=== PATIENT | male | born 1965 | race Caucasian/White ===

== ENCOUNTER 2019-02-25 08:15 | Inpatient (IN) | payer MEDICAID ==
[2019-02-25] MEDS: ONDANSETRON 4 MG INJ IV (09:25)
[2019-02-25] MEDS: SOD CHLORIDE 0.9% 1,000 ML IV (09:29)
[2019-02-25 09:42] LABS: ADD MAN DIFF? NO
[2019-02-25 09:44] LABS: WHITE BLOOD COUNT 9.8 10^3/ul (4.8-10.8)
[2019-02-25 09:44] LABS: ABNORMAL IP MESSAGE 1; BASOPHILS % 0.4 % (0.0-2.0); EOSINOPHILS % 0.1 % (0.0-7.0); HEMATOCRIT 49.4 % (42.0-52.0); HEMOGLOBIN 16.9 g/dl (14.0-18.0); LYMPHOCYTES # 0.4 10^3/ul (0.8-2.9); LYMPHOCYTES % 4.4 % (15.0-51.0); MEAN CORPUSCULAR HEMOGLOBIN 29.3 pg (29.0-33.0); MEAN CORPUSCULAR HGB CONC 34.2 g/dl (32.0-37.0); MEAN CORPUSCULAR VOLUME 85.6 fl (82.0-101.0); MEAN PLATELET VOLUME 11.1 fl (7.4-10.4); MONOCYTE # 0.6 10^3/ul (0.3-0.9); MONOCYTES % 6.1 % (0.0-11.0); NEUTROPHIL # 8.7 10^3/ul (1.6-7.5); NEUTROPHILS % 88.7 % (39.0-77.0); PLATELET COUNT 218 10^3/UL (140-415); POSITIVE DIFF @See below; RED BLOOD COUNT 5.77 10^6/ul (4.70-6.10); RED CELL DISTRIBUTION WIDTH 12.6 % (11.5-14.5)
[2019-02-25 10:01] LABS: ALANINE AMINOTRANSFERASE 21 IU/L (13-69); ALBUMIN 4.1 g/dl (3.3-4.9); ALBUMIN/GLOBULIN RATIO 1.36; ALKALINE PHOSPHATASE 95 IU/L (42-121); ANION GAP 8 (5-13); ASPARTATE AMINO TRANSFERASE 19 IU/L (15-46); BILIRUBIN,INDIRECT 1.3 mg/dl (0-1.1); BILIRUBIN,TOTAL 1.3 mg/dl (0.2-1.3); BLOOD UREA NITROGEN 22 mg/dl (7-20); CALCIUM 9.4 mg/dl (8.4-10.2); CARBON DIOXIDE 31 mmol/L (21-31); CHLORIDE 101 mmol/L (97-110); CREATININE 0.85 mg/dl (0.61-1.24); Estimated GFR > 60 mL/min (>60); GLUCOSE 278 mg/dl (70-220); LIPASE 185 U/L (23-300); POTASSIUM 3.9 mmol/L (3.5-5.1); SODIUM 140 mmol/L (135-144); TOTAL PROTEIN 7.1 g/dl (6.1-8.1)
[2019-02-25 10:02] LABS: AMMONIA < 9 umol/l (9-30)
[2019-02-25 10:02] LABS: ETHANOL < 10.0 mg/dl (0-0)
[2019-02-25 10:03] LABS: INR 0.93; PROTIME 12.6 Sec (11.9-14.9)
[2019-02-25 10:04] LABS: PARTIAL THROMBOPLASTIN TIME 26.9 Sec (23.0-35.0)
[2019-02-25 10:12] LABS: TROPONIN-I < 0.012 ng/ml (0.000-0.120)
[2019-02-25] MEDS: ASPIRIN 81 MG TAB PO (10:45)
[2019-02-25] MEDS ORDERED: NACL 0.9% 3 ML SYG IV (11:00)
[2019-02-25 13:14] LABS: CHOLESTEROL 209 mg/dl (100-200)
[2019-02-25 13:14] LABS: CHOL/HDL RATIO 6.3 RATIO; HDL CHOLESTEROL 33 mg/dl (28-71); LDL CHOLESTEROL,CALCULATED 133 mg/dl; TRIGLYCERIDES 215 mg/dl (0-149)
[2019-02-25 13:30] LABS: HIV 1&2 ANTIBODY NEGATIVE (NEGATIVE)
[2019-02-25] MEDS ORDERED: GLUCOSE GEL 15 GRAM TUBE BUCCAL (13:30)
[2019-02-25] MEDS ORDERED: GLUCOSE GEL 15 GRAM TUBE PO ×2 (13:30)
[2019-02-25] MEDS ORDERED: DEXTROSE 50% 50 ML SYRINGE IV ×2 (13:30)
[2019-02-25] MEDS ORDERED: GLUCAGON 1 MG INJ IM (13:30)
[2019-02-25 13:39] LABS: ERYTHROCYTE SEDIMENTATION RATE 1 mm/Hr (0-20)
[2019-02-25 13:51] LABS: HEMOGLOBIN A1C 8.4 % (0-5.9)
[2019-02-25] MEDS: INSULIN ASPART [NOVOLOG] 3 ML PEN SC ×2 (18:00→21:15)
[2019-02-25] MEDS: FAMOTIDINE 20 MG TAB PO (20:31)
[2019-02-25] MEDS: ATORVASTATIN 40 MG TAB PO (20:31)
[2019-02-25] MEDS: HYDROCODONE/APAP (5/325) TAB PO (20:35)
[2019-02-25] MEDS: HEPARIN 5,000 UNIT/1 ML VIAL SC (20:38)
[2019-02-25 20:48] LABS: RAPID PLASMA REAGIN NONREACTIVE (NR)
[2019-02-25] MEDS: hydrALAzine 20 MG INJ IV (23:00)
[2019-02-25] MEDS: MULTIVITAMINS 10 ML, THIAMINE 100 MG, FOLIC ACID 1 MG in SOD CHLORIDE 0.9% 1,000 ML IVPB (23:53)
[2019-02-26] MEDS: ACCU-CHEK XX (02:02)
[2019-02-26 06:20] LABS: ADD MAN DIFF? NO
[2019-02-26 06:26] LABS: BASOPHILS % 0.5 % (0.0-2.0); EOSINOPHILS % 0.1 % (0.0-7.0); HEMATOCRIT 45.5 % (42.0-52.0); HEMOGLOBIN 15.9 g/dl (14.0-18.0); LYMPHOCYTES # 0.6 10^3/ul (0.8-2.9); LYMPHOCYTES % 7.7 % (15.0-51.0); MEAN CORPUSCULAR HEMOGLOBIN 29.6 pg (29.0-33.0); MEAN CORPUSCULAR HGB CONC 34.9 g/dl (32.0-37.0); MEAN CORPUSCULAR VOLUME 84.7 fl (82.0-101.0); MEAN PLATELET VOLUME 11.4 fl (7.4-10.4); MONOCYTE # 0.6 10^3/ul (0.3-0.9); MONOCYTES % 7.2 % (0.0-11.0); NEUTROPHIL # 6.8 10^3/ul (1.6-7.5); NEUTROPHILS % 84.1 % (39.0-77.0); PLATELET COUNT 202 10^3/UL (140-415); RED BLOOD COUNT 5.37 10^6/ul (4.70-6.10); RED CELL DISTRIBUTION WIDTH 12.6 % (11.5-14.5)
[2019-02-26 06:26] LABS: WHITE BLOOD COUNT 8.1 10^3/ul (4.8-10.8)
[2019-02-26 06:44] LABS: ALANINE AMINOTRANSFERASE 20 IU/L (13-69); ALBUMIN 3.6 g/dl (3.3-4.9); ALBUMIN/GLOBULIN RATIO 1.44; ALKALINE PHOSPHATASE 80 IU/L (42-121); ANION GAP 10 (5-13); ASPARTATE AMINO TRANSFERASE 21 IU/L (15-46); BILIRUBIN,INDIRECT 1.2 mg/dl (0-1.1); BILIRUBIN,TOTAL 1.2 mg/dl (0.2-1.3); BLOOD UREA NITROGEN 19 mg/dl (7-20); CALCIUM 9.3 mg/dl (8.4-10.2); CARBON DIOXIDE 28 mmol/L (21-31); CHLORIDE 105 mmol/L (97-110); CHOL/HDL RATIO 5.6 RATIO; CHOLESTEROL 181 mg/dl (100-200); CREATININE 0.73 mg/dl (0.61-1.24); Estimated GFR > 60 mL/min (>60); GLUCOSE 200 mg/dl (70-220); HDL CHOLESTEROL 32 mg/dl (28-71); LDL CHOLESTEROL,CALCULATED 120 mg/dl; MAGNESIUM 2.1 mg/dl (1.7-2.5); POTASSIUM 3.9 mmol/L (3.5-5.1); SODIUM 143 mmol/L (135-144); TOTAL PROTEIN 6.1 g/dl (6.1-8.1); TRIGLYCERIDES 145 mg/dl (0-149)
[2019-02-26 06:59] LABS: FREE THYROXINE INDEX (Calc) 3.26 ug/ml (0.65-3.89); T3 UPTAKE 39.8 % (23.5-40.5); T4 (THYROXINE) 8.2 ug/dl (5.5-11.0)
[2019-02-26] MEDS: INSULIN ASPART [NOVOLOG] 3 ML PEN SC ×5 (07:40→20:53)
[2019-02-26] MEDS: ONDANSETRON 4 MG INJ IV (07:50)
[2019-02-26] MEDS: hydrALAzine 20 MG INJ IV (07:51)
[2019-02-26] MEDS: FAMOTIDINE 20 MG TAB PO ×2 (08:18→20:16)
[2019-02-26] MEDS: ASPIRIN (EC) 81 MG TAB PO (08:18)
[2019-02-26] MEDS: HEPARIN 5,000 UNIT/1 ML VIAL SC ×2 (08:43→20:28)
[2019-02-26] MEDS: MULTIVITAMINS 10 ML, THIAMINE 100 MG, FOLIC ACID 1 MG in SOD CHLORIDE 0.9% 1,000 ML IVPB (08:47)
[2019-02-26] MEDS: LISINOPRIL 5 MG TAB PO (16:48)
[2019-02-26] MEDS: ATORVASTATIN 40 MG TAB PO (20:16)
[2019-02-26] MEDS: AMLODIPINE 5 MG TAB PO (20:17)
[2019-02-26] MEDS: INSULIN GLARGINE [LANTus] (100 UNITS/ML) SYG SC (20:52)
[2019-02-27] MEDS: ACCU-CHEK XX (01:40)
[2019-02-27] MEDS: INSULIN ASPART [NOVOLOG] 3 ML PEN SC ×7 (08:00→20:19)
[2019-02-27] MEDS: LISINOPRIL 5 MG TAB PO (08:04)
[2019-02-27] MEDS: ASPIRIN (EC) 81 MG TAB PO (08:04)
[2019-02-27] MEDS: AMLODIPINE 5 MG TAB PO ×2 (08:04→20:15)
[2019-02-27] MEDS: hydrALAzine 20 MG INJ IV ×2 (08:04→20:15)
[2019-02-27] MEDS: HEPARIN 5,000 UNIT/1 ML VIAL SC ×2 (08:12→20:16)
[2019-02-27] MEDS: FAMOTIDINE 20 MG TAB PO ×2 (09:00→20:15)
[2019-02-27] MEDS: MULTIVITAMINS 10 ML, THIAMINE 100 MG, FOLIC ACID 1 MG in SOD CHLORIDE 0.9% 1,000 ML IVPB (09:00)
[2019-02-27] MEDS: ONDANSETRON 4 MG INJ IV (13:58)
[2019-02-27] MEDS: ATORVASTATIN 40 MG TAB PO (20:14)
[2019-02-27] MEDS: HYDROCODONE/APAP (5/325) TAB PO (20:18)
[2019-02-27] MEDS: INSULIN GLARGINE [LANTus] (100 UNITS/ML) SYG SC (20:18)
[2019-02-28] MEDS: ACCU-CHEK XX (02:00)
[2019-02-28 05:19] LABS: ADD MAN DIFF? NO
[2019-02-28 05:28] LABS: WHITE BLOOD COUNT 6.5 10^3/ul (4.8-10.8)
[2019-02-28 05:28] LABS: ABNORMAL IP MESSAGE 1; BASOPHILS % 0.6 % (0.0-2.0); HEMATOCRIT 45.5 % (42.0-52.0); HEMOGLOBIN 15.9 g/dl (14.0-18.0); LYMPHOCYTES # 0.5 10^3/ul (0.8-2.9); LYMPHOCYTES % 8.3 % (15.0-51.0); MEAN CORPUSCULAR HEMOGLOBIN 29.3 pg (29.0-33.0); MEAN CORPUSCULAR HGB CONC 34.9 g/dl (32.0-37.0); MEAN CORPUSCULAR VOLUME 83.9 fl (82.0-101.0); MEAN PLATELET VOLUME 11.3 fl (7.4-10.4); MONOCYTE # 0.5 10^3/ul (0.3-0.9); MONOCYTES % 7.2 % (0.0-11.0); NEUTROPHIL # 5.4 10^3/ul (1.6-7.5); NEUTROPHILS % 83.4 % (39.0-77.0); PLATELET COUNT 188 10^3/UL (140-415); POSITIVE DIFF @See below; RED BLOOD COUNT 5.42 10^6/ul (4.70-6.10); RED CELL DISTRIBUTION WIDTH 12.4 % (11.5-14.5)
[2019-02-28 06:02] LABS: ANION GAP 11 (5-13); BLOOD UREA NITROGEN 13 mg/dl (7-20); CALCIUM 8.9 mg/dl (8.4-10.2); CARBON DIOXIDE 26 mmol/L (21-31); CHLORIDE 103 mmol/L (97-110); CREATININE 0.72 mg/dl (0.61-1.24); Estimated GFR > 60 mL/min (>60); GLUCOSE 149 mg/dl (70-220); SODIUM 140 mmol/L (135-144)
[2019-02-28] MEDS: POTASSIUM CHLORIDE 100 ML IVPB ×2 (07:48→10:23)
[2019-02-28] MEDS: INSULIN ASPART [NOVOLOG] 3 ML PEN SC ×7 (07:50→20:30)
[2019-02-28] MEDS: FAMOTIDINE 20 MG TAB PO ×2 (08:18→20:13)
[2019-02-28] MEDS: LISINOPRIL 20 MG TAB PO (08:18)
[2019-02-28] MEDS: ASPIRIN (EC) 81 MG TAB PO (08:18)
[2019-02-28] MEDS: AMLODIPINE 5 MG TAB PO ×2 (08:19→20:13)
[2019-02-28] MEDS: HEPARIN 5,000 UNIT/1 ML VIAL SC ×2 (08:24→20:30)
[2019-02-28] MEDS: POTASSIUM CHLORIDE (SR) 20 MEQ TAB PO (10:00)
[2019-02-28 11:42] LABS: MAGNESIUM 2.2 mg/dl (1.7-2.5)
[2019-02-28] MEDS: hydrALAzine 20 MG INJ IV (12:44)
[2019-02-28] MEDS: ONDANSETRON 4 MG INJ IV (17:44)
[2019-02-28] MEDS: ATORVASTATIN 40 MG TAB PO (20:13)
[2019-02-28] MEDS: HYDROCODONE/APAP (5/325) TAB PO (20:14)
[2019-02-28] MEDS: INSULIN GLARGINE [LANTus] (100 UNITS/ML) SYG SC (20:30)
[2019-03-01] MEDS: ACCU-CHEK XX (02:02)
[2019-03-01 06:04] LABS: ADD MAN DIFF? NO
[2019-03-01 06:22] LABS: WHITE BLOOD COUNT 7.7 10^3/ul (4.8-10.8)
[2019-03-01 06:22] LABS: BASOPHILS % 0.5 % (0.0-2.0); EOSINOPHILS % 0.3 % (0.0-7.0); HEMATOCRIT 44.8 % (42.0-52.0); HEMOGLOBIN 15.8 g/dl (14.0-18.0); LYMPHOCYTES # 0.7 10^3/ul (0.8-2.9); LYMPHOCYTES % 9.5 % (15.0-51.0); MEAN CORPUSCULAR HEMOGLOBIN 29.5 pg (29.0-33.0); MEAN CORPUSCULAR HGB CONC 35.3 g/dl (32.0-37.0); MEAN CORPUSCULAR VOLUME 83.6 fl (82.0-101.0); MEAN PLATELET VOLUME 11.8 fl (7.4-10.4); MONOCYTE # 0.6 10^3/ul (0.3-0.9); MONOCYTES % 8.1 % (0.0-11.0); NEUTROPHIL # 6.2 10^3/ul (1.6-7.5); NEUTROPHILS % 81.3 % (39.0-77.0); PLATELET COUNT 179 10^3/UL (140-415); RED BLOOD COUNT 5.36 10^6/ul (4.70-6.10); RED CELL DISTRIBUTION WIDTH 12.4 % (11.5-14.5)
[2019-03-01 06:46] LABS: ANION GAP 8 (5-13); BLOOD UREA NITROGEN 14 mg/dl (7-20); CALCIUM 8.9 mg/dl (8.4-10.2); CARBON DIOXIDE 28 mmol/L (21-31); CHLORIDE 104 mmol/L (97-110); Estimated GFR > 60 mL/min (>60); GLUCOSE 100 mg/dl (70-220); SODIUM 140 mmol/L (135-144)
[2019-03-01] MEDS: INSULIN ASPART [NOVOLOG] 3 ML PEN SC ×7 (07:48→21:00)
[2019-03-01] MEDS: AMLODIPINE 5 MG TAB PO ×2 (08:56→20:28)
[2019-03-01] MEDS: HYDROCODONE/APAP (5/325) TAB PO ×2 (08:57→17:34)
[2019-03-01] MEDS: LISINOPRIL 20 MG TAB PO ×2 (08:57→13:14)
[2019-03-01] MEDS: FAMOTIDINE 20 MG TAB PO ×2 (08:57→20:27)
[2019-03-01] MEDS: ASPIRIN (EC) 81 MG TAB PO (08:57)
[2019-03-01] MEDS: HEPARIN 5,000 UNIT/1 ML VIAL SC ×2 (09:09→20:30)
[2019-03-01] MEDS: ONDANSETRON 4 MG INJ IV ×2 (10:56→17:20)
[2019-03-01] MEDS: hydrALAzine 20 MG INJ IV ×2 (10:56→20:38)
[2019-03-01 12:14] LABS: MAGNESIUM 2.3 mg/dl (1.7-2.5)
[2019-03-01] MEDS: BISACODYL (EC) 5 MG TAB PO (13:14)
[2019-03-01] MEDS: POTASSIUM CHLORIDE (SR) 20 MEQ TAB PO (13:14)
[2019-03-01] MEDS: metFORMIN 500 MG TAB PO (17:34)
[2019-03-01] MEDS: SOD CHLORIDE 0.9% 1,000 ML IV (18:51)
[2019-03-01] MEDS: ATORVASTATIN 40 MG TAB PO (20:27)
[2019-03-01] MEDS: POLYETHYLENE GLYCOL 17 GM PACKET PO (20:28)
[2019-03-01] MEDS: morphine 2 MG INJ IV (20:39)
[2019-03-01] MEDS: INSULIN GLARGINE [LANTus] (100 UNITS/ML) SYG SC (21:41)
[2019-03-02] MEDS: ACCU-CHEK XX ×2 (02:00→23:13)
[2019-03-02] MEDS: metFORMIN 500 MG TAB PO ×3 (08:00→17:33)
[2019-03-02] MEDS: INSULIN ASPART [NOVOLOG] 3 ML PEN SC ×7 (08:00→21:00)
[2019-03-02 08:21] LABS: ADD MAN DIFF? NO
[2019-03-02 08:26] LABS: BASOPHIL # 0.1 10^3/ul (0.0-0.1); BASOPHILS % 0.6 % (0.0-2.0); EOSINOPHILS % 0.1 % (0.0-7.0); HEMATOCRIT 46.9 % (42.0-52.0); LYMPHOCYTES # 0.7 10^3/ul (0.8-2.9); MEAN CORPUSCULAR HEMOGLOBIN 29.1 pg (29.0-33.0); MEAN CORPUSCULAR HGB CONC 34.1 g/dl (32.0-37.0); MEAN CORPUSCULAR VOLUME 85.4 fl (82.0-101.0); MEAN PLATELET VOLUME 11.2 fl (7.4-10.4); MONOCYTE # 0.7 10^3/ul (0.3-0.9); MONOCYTES % 8.7 % (0.0-11.0); NEUTROPHIL # 6.5 10^3/ul (1.6-7.5); NEUTROPHILS % 81.2 % (39.0-77.0); PLATELET COUNT 196 10^3/UL (140-415); RED BLOOD COUNT 5.49 10^6/ul (4.70-6.10); RED CELL DISTRIBUTION WIDTH 12.8 % (11.5-14.5)
[2019-03-02] MEDS: LISINOPRIL 20 MG TAB PO ×2 (08:42→11:30)
[2019-03-02] MEDS: ASPIRIN (EC) 81 MG TAB PO ×3 (08:42→11:29)
[2019-03-02] MEDS: FAMOTIDINE 20 MG TAB PO ×3 (08:42→20:57)
[2019-03-02] MEDS: AMLODIPINE 5 MG TAB PO ×4 (08:43→20:57)
[2019-03-02] MEDS: POLYETHYLENE GLYCOL 17 GM PACKET PO ×3 (08:43→20:57)
[2019-03-02] MEDS: hydrALAzine 20 MG INJ IV ×2 (08:43→14:32)
[2019-03-02 08:55] LABS: MAGNESIUM 2.3 mg/dl (1.7-2.5)
[2019-03-02 08:57] LABS: ANION GAP 9 (5-13); BLOOD UREA NITROGEN 19 mg/dl (7-20); CALCIUM 9.2 mg/dl (8.4-10.2); CARBON DIOXIDE 25 mmol/L (21-31); CHLORIDE 105 mmol/L (97-110); CREATININE 0.79 mg/dl (0.61-1.24); Estimated GFR > 60 mL/min (>60); GLUCOSE 128 mg/dl (70-220); POTASSIUM 3.8 mmol/L (3.5-5.1); SODIUM 139 mmol/L (135-144)
[2019-03-02] MEDS: HEPARIN 5,000 UNIT/1 ML VIAL SC ×2 (09:01→20:59)
[2019-03-02] MEDS: ONDANSETRON 4 MG INJ IV (11:30)
[2019-03-02] MEDS: HYDROCODONE/APAP (5/325) TAB PO ×2 (11:31→18:10)
[2019-03-02] MEDS: SOD CHLORIDE 0.9% 1,000 ML IV (17:32)
[2019-03-02] MEDS: METOCLOPRAMIDE 10 MG INJ IV (17:33)
[2019-03-02] MEDS: ATORVASTATIN 40 MG TAB PO (20:57)
[2019-03-02] MEDS: INSULIN GLARGINE [LANTus] (100 UNITS/ML) SYG SC (21:04)
[2019-03-03] MEDS: METOCLOPRAMIDE 10 MG INJ IV ×5 (00:26→23:54)
[2019-03-03] MEDS: INSULIN ASPART [NOVOLOG] 3 ML PEN SC ×9 (01:00→20:38)
[2019-03-03] MEDS: SOD CHLORIDE 0.9% 1,000 ML IV ×3 (05:31→23:54)
[2019-03-03] MEDS: metFORMIN 500 MG TAB PO (08:00)
[2019-03-03 08:01] LABS: ADD MAN DIFF? NO
[2019-03-03 08:06] LABS: WHITE BLOOD COUNT 9.7 10^3/ul (4.8-10.8)
[2019-03-03 08:07] LABS: BASOPHIL # 0.1 10^3/ul (0.0-0.1); BASOPHILS % 0.5 % (0.0-2.0); EOSINOPHILS % 0.2 % (0.0-7.0); HEMOGLOBIN 15.6 g/dl (14.0-18.0); LYMPHOCYTES # 0.6 10^3/ul (0.8-2.9); LYMPHOCYTES % 6.6 % (15.0-51.0); MEAN CORPUSCULAR HEMOGLOBIN 29.1 pg (29.0-33.0); MEAN CORPUSCULAR HGB CONC 34.7 g/dl (32.0-37.0); MEAN CORPUSCULAR VOLUME 83.8 fl (82.0-101.0); MEAN PLATELET VOLUME 11.3 fl (7.4-10.4); MONOCYTE # 0.8 10^3/ul (0.3-0.9); MONOCYTES % 7.7 % (0.0-11.0); NEUTROPHIL # 8.2 10^3/ul (1.6-7.5); NEUTROPHILS % 84.6 % (39.0-77.0); PLATELET COUNT 198 10^3/UL (140-415); RED BLOOD COUNT 5.37 10^6/ul (4.70-6.10); RED CELL DISTRIBUTION WIDTH 12.7 % (11.5-14.5)
[2019-03-03] MEDS: FAMOTIDINE 20 MG TAB PO ×2 (08:17→20:37)
[2019-03-03] MEDS: POLYETHYLENE GLYCOL 17 GM PACKET PO ×2 (08:18→20:38)
[2019-03-03] MEDS: AMLODIPINE 5 MG TAB PO ×2 (08:18→20:38)
[2019-03-03] MEDS: ASPIRIN (EC) 81 MG TAB PO (08:18)
[2019-03-03] MEDS: LISINOPRIL 20 MG TAB PO (08:18)
[2019-03-03] MEDS: HEPARIN 5,000 UNIT/1 ML VIAL SC ×2 (08:19→20:42)
[2019-03-03 08:31] LABS: MAGNESIUM 2.2 mg/dl (1.7-2.5)
[2019-03-03 08:31] LABS: PHOSPHORUS 3.3 mg/dl (2.5-4.9)
[2019-03-03 08:33] LABS: ANION GAP 7 (5-13); BLOOD UREA NITROGEN 15 mg/dl (7-20); CALCIUM 8.5 mg/dl (8.4-10.2); CARBON DIOXIDE 27 mmol/L (21-31); CHLORIDE 105 mmol/L (97-110); CREATININE 0.65 mg/dl (0.61-1.24); Estimated GFR > 60 mL/min (>60); GLUCOSE 121 mg/dl (70-220); POTASSIUM 3.5 mmol/L (3.5-5.1); SODIUM 139 mmol/L (135-144)
[2019-03-03] MEDS: hydrALAzine 20 MG INJ IV ×2 (13:37→18:57)
[2019-03-03] MEDS: morphine 2 MG INJ IV (13:50)
[2019-03-03] MEDS: PANTOPRAZOLE 40 MG INJ IV (18:49)
[2019-03-03] MEDS: METOPROLOL 25 MG TAB PO (20:38)
[2019-03-03] MEDS: ATORVASTATIN 40 MG TAB PO (20:38)
[2019-03-03] MEDS: INSULIN GLARGINE [LANTus] (100 UNITS/ML) SYG SC (20:41)
[2019-03-04] MEDS: HYDROCODONE/APAP (5/325) TAB PO (00:19)
[2019-03-04] MEDS: ACCU-CHEK XX (02:00)
[2019-03-04] MEDS: PANTOPRAZOLE 40 MG INJ IV ×3 (05:36→18:44)
[2019-03-04] MEDS: METOCLOPRAMIDE 10 MG INJ IV ×4 (05:36→18:44)
[2019-03-04 06:38] LABS: ADD MAN DIFF? NO
[2019-03-04 06:41] LABS: WHITE BLOOD COUNT 8.3 10^3/ul (4.8-10.8)
[2019-03-04 06:41] LABS: BASOPHILS % 0.5 % (0.0-2.0); EOSINOPHILS % 0.1 % (0.0-7.0); HEMATOCRIT 44.5 % (42.0-52.0); HEMOGLOBIN 15.8 g/dl (14.0-18.0); LYMPHOCYTES # 0.8 10^3/ul (0.8-2.9); LYMPHOCYTES % 10.1 % (15.0-51.0); MEAN CORPUSCULAR HEMOGLOBIN 29.6 pg (29.0-33.0); MEAN CORPUSCULAR HGB CONC 35.5 g/dl (32.0-37.0); MEAN CORPUSCULAR VOLUME 83.5 fl (82.0-101.0); MEAN PLATELET VOLUME 11.4 fl (7.4-10.4); MONOCYTE # 0.7 10^3/ul (0.3-0.9); MONOCYTES % 8.6 % (0.0-11.0); NEUTROPHIL # 6.6 10^3/ul (1.6-7.5); NEUTROPHILS % 80.5 % (39.0-77.0); PLATELET COUNT 203 10^3/UL (140-415); RED BLOOD COUNT 5.33 10^6/ul (4.70-6.10); RED CELL DISTRIBUTION WIDTH 12.6 % (11.5-14.5)
[2019-03-04 07:25] LABS: ANION GAP 9 (5-13); BLOOD UREA NITROGEN 13 mg/dl (7-20); CALCIUM 8.6 mg/dl (8.4-10.2); CARBON DIOXIDE 25 mmol/L (21-31); CHLORIDE 104 mmol/L (97-110); CREATININE 0.65 mg/dl (0.61-1.24); Estimated GFR > 60 mL/min (>60); GLUCOSE 110 mg/dl (70-220); POTASSIUM 3.3 mmol/L (3.5-5.1); SODIUM 138 mmol/L (135-144)
[2019-03-04] MEDS: AMLODIPINE 5 MG TAB PO ×2 (07:33→20:26)
[2019-03-04] MEDS: METOPROLOL 25 MG TAB PO ×2 (07:33→20:26)
[2019-03-04] MEDS: LISINOPRIL 20 MG TAB PO (07:34)
[2019-03-04] MEDS: INSULIN ASPART [NOVOLOG] 3 ML PEN SC ×6 (08:00→20:28)
[2019-03-04 08:08] LABS: PHOSPHORUS 3.6 mg/dl (2.5-4.9)
[2019-03-04 08:08] LABS: MAGNESIUM 2.2 mg/dl (1.7-2.5)
[2019-03-04] MEDS: FAMOTIDINE 20 MG TAB PO (08:18)
[2019-03-04] MEDS: POLYETHYLENE GLYCOL 17 GM PACKET PO ×2 (08:18→20:28)
[2019-03-04] MEDS: ASPIRIN (EC) 81 MG TAB PO (08:18)
[2019-03-04] MEDS: POTASSIUM CHLORIDE (SR) 10 MEQ TAB PO (08:18)
[2019-03-04] MEDS: HEPARIN 5,000 UNIT/1 ML VIAL SC ×2 (08:23→20:27)
[2019-03-04] MEDS: SOD CHLORIDE 0.9% 1,000 ML IV (08:30)
[2019-03-04] MEDS: hydrALAzine 20 MG INJ IV (15:59)
[2019-03-04] MEDS: morphine 2 MG INJ IV (19:13)
[2019-03-04] MEDS: CLARITHROMYCIN 500 MG TAB PO (20:25)
[2019-03-04] MEDS: AMOXICILLIN 500 MG CAP PO (20:25)
[2019-03-04] MEDS: ATORVASTATIN 40 MG TAB PO (20:26)
[2019-03-04] MEDS: INSULIN GLARGINE [LANTus] (100 UNITS/ML) SYG SC (20:28)
[2019-03-05] MEDS: METOCLOPRAMIDE 10 MG INJ IV ×4 (00:43→17:11)
[2019-03-05] MEDS: ACCU-CHEK XX (01:16)
[2019-03-05] MEDS: LORAZEPAM 0.5 MG TAB PO (01:36)
[2019-03-05] MEDS: hydrALAzine 20 MG INJ IV (01:53)
[2019-03-05 05:21] LABS: ADD MAN DIFF? NO
[2019-03-05] MEDS: PANTOPRAZOLE 40 MG INJ IV ×2 (05:21→17:11)
[2019-03-05 05:33] LABS: WHITE BLOOD COUNT 7.6 10^3/ul (4.8-10.8)
[2019-03-05 05:33] LABS: BASOPHILS % 0.4 % (0.0-2.0); HEMATOCRIT 44.3 % (42.0-52.0); HEMOGLOBIN 15.6 g/dl (14.0-18.0); LYMPHOCYTES # 0.6 10^3/ul (0.8-2.9); LYMPHOCYTES % 8.3 % (15.0-51.0); MEAN CORPUSCULAR HEMOGLOBIN 29.5 pg (29.0-33.0); MEAN CORPUSCULAR HGB CONC 35.2 g/dl (32.0-37.0); MEAN CORPUSCULAR VOLUME 83.9 fl (82.0-101.0); MEAN PLATELET VOLUME 11.7 fl (7.4-10.4); MONOCYTE # 0.6 10^3/ul (0.3-0.9); NEUTROPHIL # 6.3 10^3/ul (1.6-7.5); NEUTROPHILS % 82.9 % (39.0-77.0); PLATELET COUNT 193 10^3/UL (140-415); RED BLOOD COUNT 5.28 10^6/ul (4.70-6.10); RED CELL DISTRIBUTION WIDTH 12.2 % (11.5-14.5)
[2019-03-05 05:54] LABS: PHOSPHORUS 3.7 mg/dl (2.5-4.9)
[2019-03-05 05:54] LABS: MAGNESIUM 2.3 mg/dl (1.7-2.5)
[2019-03-05 06:17] LABS: ANION GAP 7 (5-13); BLOOD UREA NITROGEN 13 mg/dl (7-20); CALCIUM 8.6 mg/dl (8.4-10.2); CARBON DIOXIDE 27 mmol/L (21-31); CHLORIDE 105 mmol/L (97-110); CREATININE 0.64 mg/dl (0.61-1.24); Estimated GFR > 60 mL/min (>60); GLUCOSE 87 mg/dl (70-220); POTASSIUM 3.3 mmol/L (3.5-5.1); SODIUM 139 mmol/L (135-144)
[2019-03-05] MEDS: INSULIN ASPART [NOVOLOG] 3 ML PEN SC ×4 (07:51→20:44)
[2019-03-05] MEDS: LISINOPRIL 20 MG TAB PO (08:18)
[2019-03-05] MEDS: AMOXICILLIN 500 MG CAP PO ×2 (08:18→20:41)
[2019-03-05] MEDS: CLARITHROMYCIN 500 MG TAB PO ×2 (08:19→20:40)
[2019-03-05] MEDS: METOPROLOL 25 MG TAB PO ×2 (08:19→20:41)
[2019-03-05] MEDS: ASPIRIN (EC) 81 MG TAB PO (08:19)
[2019-03-05] MEDS: AMLODIPINE 5 MG TAB PO ×2 (08:19→20:40)
[2019-03-05] MEDS: POLYETHYLENE GLYCOL 17 GM PACKET PO ×2 (08:19→20:41)
[2019-03-05] MEDS: HEPARIN 5,000 UNIT/1 ML VIAL SC ×2 (08:24→20:42)
[2019-03-05] MEDS: ENALAPRILAT 1.25 MG INJ IV (13:10)
[2019-03-05] MEDS: HYDROCODONE/APAP (5/325) TAB PO (13:16)
[2019-03-05] MEDS: POTASSIUM CHLORIDE (SR) 10 MEQ TAB PO (15:51)
[2019-03-05] MEDS: ATORVASTATIN 40 MG TAB PO (20:40)
[2019-03-05] MEDS: INSULIN GLARGINE [LANTus] (100 UNITS/ML) SYG SC (20:43)
[2019-03-06] MEDS: METOCLOPRAMIDE 10 MG INJ IV ×4 (00:34→17:40)
[2019-03-06] MEDS: ACCU-CHEK XX (02:00)
[2019-03-06] MEDS: hydrALAzine 20 MG INJ IV ×4 (02:23→22:36)
[2019-03-06 05:29] LABS: ADD MAN DIFF? NO
[2019-03-06 05:38] LABS: WHITE BLOOD COUNT 8.3 10^3/ul (4.8-10.8)
[2019-03-06 05:38] LABS: BASOPHILS % 0.4 % (0.0-2.0); EOSINOPHILS % 0.1 % (0.0-7.0); HEMATOCRIT 44.4 % (42.0-52.0); HEMOGLOBIN 15.5 g/dl (14.0-18.0); LYMPHOCYTES # 0.6 10^3/ul (0.8-2.9); LYMPHOCYTES % 7.3 % (15.0-51.0); MEAN CORPUSCULAR HEMOGLOBIN 29.1 pg (29.0-33.0); MEAN CORPUSCULAR HGB CONC 34.9 g/dl (32.0-37.0); MEAN CORPUSCULAR VOLUME 83.3 fl (82.0-101.0); MEAN PLATELET VOLUME 11.2 fl (7.4-10.4); MONOCYTE # 0.8 10^3/ul (0.3-0.9); MONOCYTES % 9.6 % (0.0-11.0); NEUTROPHIL # 6.8 10^3/ul (1.6-7.5); NEUTROPHILS % 82.1 % (39.0-77.0); PLATELET COUNT 246 10^3/UL (140-415); RED BLOOD COUNT 5.33 10^6/ul (4.70-6.10); RED CELL DISTRIBUTION WIDTH 12.1 % (11.5-14.5)
[2019-03-06 06:09] LABS: MAGNESIUM 2.3 mg/dl (1.7-2.5)
[2019-03-06 06:09] LABS: PHOSPHORUS 3.6 mg/dl (2.5-4.9)
[2019-03-06 06:12] LABS: ANION GAP 8 (5-13); BLOOD UREA NITROGEN 14 mg/dl (7-20); CALCIUM 8.7 mg/dl (8.4-10.2); CARBON DIOXIDE 27 mmol/L (21-31); CHLORIDE 104 mmol/L (97-110); CREATININE 0.66 mg/dl (0.61-1.24); Estimated GFR > 60 mL/min (>60); GLUCOSE 71 mg/dl (70-220); POTASSIUM 3.3 mmol/L (3.5-5.1); SODIUM 139 mmol/L (135-144)
[2019-03-06] MEDS: PANTOPRAZOLE 40 MG INJ IV (06:14)
[2019-03-06] MEDS: INSULIN ASPART [NOVOLOG] 3 ML PEN SC ×4 (08:00→20:37)
[2019-03-06] MEDS: LISINOPRIL 20 MG TAB PO (08:23)
[2019-03-06] MEDS: AMLODIPINE 5 MG TAB PO ×2 (08:24→20:12)
[2019-03-06] MEDS: CLARITHROMYCIN 500 MG TAB PO ×2 (08:24→20:11)
[2019-03-06] MEDS: AMOXICILLIN 500 MG CAP PO ×2 (08:24→20:11)
[2019-03-06] MEDS: METOPROLOL 25 MG TAB PO ×2 (08:25→20:12)
[2019-03-06] MEDS: ASPIRIN (EC) 81 MG TAB PO (08:25)
[2019-03-06] MEDS: POLYETHYLENE GLYCOL 17 GM PACKET PO ×2 (08:25→20:13)
[2019-03-06] MEDS: HEPARIN 5,000 UNIT/1 ML VIAL SC ×2 (08:26→20:16)
[2019-03-06] MEDS: POTASSIUM CHLORIDE (SR) 20 MEQ TAB PO (10:29)
[2019-03-06] MEDS: HYDROCODONE/APAP (5/325) TAB PO (10:30)
[2019-03-06] MEDS: PANTOPRAZOLE (EC) 40 MG TAB PO (17:40)
[2019-03-06] MEDS: ATORVASTATIN 40 MG TAB PO (20:11)
[2019-03-06] MEDS: INSULIN GLARGINE [LANTus] (100 UNITS/ML) SYG SC (20:36)
[2019-03-07] MEDS: METOCLOPRAMIDE 10 MG INJ IV ×5 (00:40→23:22)
[2019-03-07] MEDS: ACCU-CHEK XX (02:12)
[2019-03-07 05:40] LABS: ADD MAN DIFF? NO
[2019-03-07] MEDS: PANTOPRAZOLE (EC) 40 MG TAB PO ×2 (05:47→17:22)
[2019-03-07 05:51] LABS: WHITE BLOOD COUNT 8.6 10^3/ul (4.8-10.8)
[2019-03-07 05:51] LABS: ABNORMAL IP MESSAGE 1; BASOPHILS % 0.3 % (0.0-2.0); EOSINOPHILS % 0.2 % (0.0-7.0); HEMATOCRIT 45.4 % (42.0-52.0); HEMOGLOBIN 16.1 g/dl (14.0-18.0); LYMPHOCYTES # 0.5 10^3/ul (0.8-2.9); LYMPHOCYTES % 5.3 % (15.0-51.0); MEAN CORPUSCULAR HEMOGLOBIN 29.8 pg (29.0-33.0); MEAN CORPUSCULAR HGB CONC 35.5 g/dl (32.0-37.0); MEAN CORPUSCULAR VOLUME 83.9 fl (82.0-101.0); MEAN PLATELET VOLUME 11.2 fl (7.4-10.4); MONOCYTE # 0.7 10^3/ul (0.3-0.9); MONOCYTES % 8.1 % (0.0-11.0); NEUTROPHIL # 7.4 10^3/ul (1.6-7.5); NEUTROPHILS % 85.6 % (39.0-77.0); PLATELET COUNT 235 10^3/UL (140-415); POSITIVE DIFF @See below; RED BLOOD COUNT 5.41 10^6/ul (4.70-6.10); RED CELL DISTRIBUTION WIDTH 12.3 % (11.5-14.5)
[2019-03-07 06:21] LABS: ANION GAP 10 (5-13); BLOOD UREA NITROGEN 10 mg/dl (7-20); CALCIUM 8.9 mg/dl (8.4-10.2); CARBON DIOXIDE 27 mmol/L (21-31); CHLORIDE 103 mmol/L (97-110); CREATININE 0.66 mg/dl (0.61-1.24); Estimated GFR > 60 mL/min (>60); GLUCOSE 128 mg/dl (70-220); POTASSIUM 3.3 mmol/L (3.5-5.1); SODIUM 140 mmol/L (135-144)
[2019-03-07 06:30] LABS: MAGNESIUM 2.3 mg/dl (1.7-2.5)
[2019-03-07 06:30] LABS: PHOSPHORUS 3.8 mg/dl (2.5-4.9)
[2019-03-07] MEDS: POTASSIUM CHLORIDE (SR) 20 MEQ TAB PO (06:56)
[2019-03-07] MEDS: HYDROCODONE/APAP (5/325) TAB PO (07:32)
[2019-03-07] MEDS: AMOXICILLIN 500 MG CAP PO ×2 (08:16→20:28)
[2019-03-07] MEDS: CLARITHROMYCIN 500 MG TAB PO ×2 (08:16→20:29)
[2019-03-07] MEDS: AMLODIPINE 5 MG TAB PO ×2 (08:16→20:29)
[2019-03-07] MEDS: METOPROLOL 25 MG TAB PO ×2 (08:17→20:30)
[2019-03-07] MEDS: ASPIRIN (EC) 81 MG TAB PO (08:17)
[2019-03-07] MEDS: LISINOPRIL 20 MG TAB PO (08:17)
[2019-03-07] MEDS: POLYETHYLENE GLYCOL 17 GM PACKET PO ×2 (08:17→20:34)
[2019-03-07] MEDS: hydrALAzine 20 MG INJ IV ×2 (08:18→20:36)
[2019-03-07] MEDS: INSULIN ASPART [NOVOLOG] 3 ML PEN SC ×4 (08:20→20:35)
[2019-03-07] MEDS: HEPARIN 5,000 UNIT/1 ML VIAL SC ×2 (08:20→20:39)
[2019-03-07] MEDS: ATORVASTATIN 40 MG TAB PO (20:29)
[2019-03-07] MEDS: INSULIN GLARGINE [LANTus] (100 UNITS/ML) SYG SC (20:40)
[2019-03-08] MEDS: LORAZEPAM 2 MG INJ IV (01:05)
[2019-03-08] MEDS: ACCU-CHEK XX (02:00)
[2019-03-08] MEDS: METOCLOPRAMIDE 10 MG INJ IV ×3 (05:23→17:25)
[2019-03-08] MEDS: PANTOPRAZOLE (EC) 40 MG TAB PO ×2 (05:24→17:25)
[2019-03-08 05:51] LABS: ADD MAN DIFF? NO
[2019-03-08 06:02] LABS: WHITE BLOOD COUNT 7.9 10^3/ul (4.8-10.8)
[2019-03-08 06:02] LABS: ABNORMAL IP MESSAGE 1; BASOPHIL # 0.1 10^3/ul (0.0-0.1); BASOPHILS % 0.6 % (0.0-2.0); EOSINOPHILS % 0.3 % (0.0-7.0); HEMATOCRIT 45.7 % (42.0-52.0); HEMOGLOBIN 15.8 g/dl (14.0-18.0); LYMPHOCYTES # 0.6 10^3/ul (0.8-2.9); LYMPHOCYTES % 7.2 % (15.0-51.0); MEAN CORPUSCULAR HGB CONC 34.6 g/dl (32.0-37.0); MEAN PLATELET VOLUME 11.1 fl (7.4-10.4); MONOCYTE # 0.7 10^3/ul (0.3-0.9); MONOCYTES % 8.6 % (0.0-11.0); NEUTROPHIL # 6.6 10^3/ul (1.6-7.5); NEUTROPHILS % 82.8 % (39.0-77.0); PLATELET COUNT 243 10^3/UL (140-415); POSITIVE DIFF @See below; RED BLOOD COUNT 5.44 10^6/ul (4.70-6.10); RED CELL DISTRIBUTION WIDTH 12.6 % (11.5-14.5)
[2019-03-08 06:29] LABS: PHOSPHORUS 3.9 mg/dl (2.5-4.9)
[2019-03-08 06:29] LABS: MAGNESIUM 2.3 mg/dl (1.7-2.5)
[2019-03-08 06:37] LABS: ANION GAP 8 (5-13); BLOOD UREA NITROGEN 14 mg/dl (7-20); CALCIUM 9.1 mg/dl (8.4-10.2); CARBON DIOXIDE 27 mmol/L (21-31); CHLORIDE 103 mmol/L (97-110); CREATININE 0.77 mg/dl (0.61-1.24); Estimated GFR > 60 mL/min (>60); GLUCOSE 142 mg/dl (70-220); POTASSIUM 3.8 mmol/L (3.5-5.1); SODIUM 138 mmol/L (135-144)
[2019-03-08] MEDS: INSULIN ASPART [NOVOLOG] 3 ML PEN SC ×4 (08:00→20:34)
[2019-03-08] MEDS: AMOXICILLIN 500 MG CAP PO ×2 (08:31→20:24)
[2019-03-08] MEDS: METOPROLOL 25 MG TAB PO ×2 (08:31→20:26)
[2019-03-08] MEDS: CLARITHROMYCIN 500 MG TAB PO ×2 (08:31→20:24)
[2019-03-08] MEDS: LISINOPRIL 20 MG TAB PO (08:31)
[2019-03-08] MEDS: ASPIRIN (EC) 81 MG TAB PO (08:32)
[2019-03-08] MEDS: POLYETHYLENE GLYCOL 17 GM PACKET PO ×3 (08:32→20:38)
[2019-03-08] MEDS: AMLODIPINE 5 MG TAB PO ×2 (08:32→20:25)
[2019-03-08] MEDS: HEPARIN 5,000 UNIT/1 ML VIAL SC ×2 (08:33→20:34)
[2019-03-08] MEDS: PROPOFOL 20 ML (17:24)
[2019-03-08] MEDS: FENTAnyl 50 MCG/ML VIAL (17:24)
[2019-03-08] MEDS: MIDAZOLAM 1 MG/ML 2 ML INJ (17:25)
[2019-03-08] MEDS: LIDOCAINE 2% (SDV) 5 ML INJ (17:25)
[2019-03-08] MEDS: INSULIN GLARGINE [LANTus] (100 UNITS/ML) SYG SC (20:24)
[2019-03-08] MEDS: ATORVASTATIN 40 MG TAB PO (20:24)
[2019-03-09] MEDS: METOCLOPRAMIDE 10 MG INJ IV ×5 (00:36→23:37)
[2019-03-09] MEDS: ZOLPIDEM 5 MG TAB PO (01:25)
[2019-03-09] MEDS: ACCU-CHEK XX (01:49)
[2019-03-09] MEDS: PANTOPRAZOLE (EC) 40 MG TAB PO ×2 (05:58→17:20)
[2019-03-09] MEDS: INSULIN ASPART [NOVOLOG] 3 ML PEN SC ×4 (08:00→20:12)
[2019-03-09] MEDS: METOPROLOL 25 MG TAB PO ×2 (08:18→21:42)
[2019-03-09] MEDS: ASPIRIN (EC) 81 MG TAB PO (08:19)
[2019-03-09] MEDS: AMOXICILLIN 500 MG CAP PO ×2 (08:19→21:42)
[2019-03-09] MEDS: CLARITHROMYCIN 500 MG TAB PO ×2 (08:19→23:37)
[2019-03-09] MEDS: AMLODIPINE 5 MG TAB PO ×2 (08:19→21:44)
[2019-03-09] MEDS: LISINOPRIL 20 MG TAB PO (08:19)
[2019-03-09] MEDS: HEPARIN 5,000 UNIT/1 ML VIAL SC ×2 (08:20→21:53)
[2019-03-09] MEDS: POLYETHYLENE GLYCOL 17 GM PACKET PO ×2 (09:00→21:00)
[2019-03-09] MEDS: hydrALAzine 20 MG INJ IV ×2 (14:14→20:05)
[2019-03-09] MEDS: metFORMIN 500 MG TAB PO (18:45)
[2019-03-09] MEDS: ACETAMINOPHEN 325 MG TAB PO (18:45)
[2019-03-09] MEDS: INSULIN GLARGINE [LANTus] (100 UNITS/ML) SYG SC (20:13)
[2019-03-09] MEDS: ATORVASTATIN 40 MG TAB PO (21:42)
[2019-03-10] MEDS: ACCU-CHEK XX (01:43)
[2019-03-10 05:48] LABS: ADD MAN DIFF? NO
[2019-03-10 05:50] LABS: WHITE BLOOD COUNT 6.6 10^3/ul (4.8-10.8)
[2019-03-10 05:50] LABS: BASOPHILS % 0.6 % (0.0-2.0); EOSINOPHILS % 0.3 % (0.0-7.0); HEMATOCRIT 43.5 % (42.0-52.0); HEMOGLOBIN 15.2 g/dl (14.0-18.0); LYMPHOCYTES # 0.7 10^3/ul (0.8-2.9); LYMPHOCYTES % 10.3 % (15.0-51.0); MEAN CORPUSCULAR HEMOGLOBIN 29.4 pg (29.0-33.0); MEAN CORPUSCULAR HGB CONC 34.9 g/dl (32.0-37.0); MEAN CORPUSCULAR VOLUME 84.1 fl (82.0-101.0); MEAN PLATELET VOLUME 10.8 fl (7.4-10.4); MONOCYTE # 0.5 10^3/ul (0.3-0.9); MONOCYTES % 8.2 % (0.0-11.0); NEUTROPHIL # 5.3 10^3/ul (1.6-7.5); NEUTROPHILS % 80.1 % (39.0-77.0); PLATELET COUNT 266 10^3/UL (140-415); RED BLOOD COUNT 5.17 10^6/ul (4.70-6.10); RED CELL DISTRIBUTION WIDTH 12.3 % (11.5-14.5)
[2019-03-10 06:11] LABS: PHOSPHORUS 4.5 mg/dl (2.5-4.9)
[2019-03-10] MEDS: METOCLOPRAMIDE 10 MG INJ IV ×3 (06:26→17:02)
[2019-03-10] MEDS: PANTOPRAZOLE (EC) 40 MG TAB PO ×2 (06:26→17:02)
[2019-03-10 06:38] LABS: ANION GAP 10 (5-13); BLOOD UREA NITROGEN 12 mg/dl (7-20); CALCIUM 9.4 mg/dl (8.4-10.2); CARBON DIOXIDE 26 mmol/L (21-31); CHLORIDE 104 mmol/L (97-110); CREATININE 0.74 mg/dl (0.61-1.24); Estimated GFR > 60 mL/min (>60); GLUCOSE 149 mg/dl (70-220); POTASSIUM 3.7 mmol/L (3.5-5.1); SODIUM 140 mmol/L (135-144)
[2019-03-10 07:33] LABS: MAGNESIUM 2.2 mg/dl (1.7-2.5)
[2019-03-10] MEDS: INSULIN ASPART [NOVOLOG] 3 ML PEN SC ×4 (08:00→20:15)
[2019-03-10] MEDS: ASPIRIN (EC) 81 MG TAB PO (08:17)
[2019-03-10] MEDS: POLYETHYLENE GLYCOL 17 GM PACKET PO (08:17)
[2019-03-10] MEDS: HEPARIN 5,000 UNIT/1 ML VIAL SC ×2 (08:17→20:15)
[2019-03-10] MEDS: CLARITHROMYCIN 500 MG TAB PO ×2 (08:18→20:13)
[2019-03-10] MEDS: AMOXICILLIN 500 MG CAP PO ×2 (08:18→20:13)
[2019-03-10] MEDS: METOPROLOL 25 MG TAB PO (08:19)
[2019-03-10] MEDS: metFORMIN 500 MG TAB PO ×2 (08:19→17:04)
[2019-03-10] MEDS: LISINOPRIL 20 MG TAB PO (08:19)
[2019-03-10] MEDS: AMLODIPINE 5 MG TAB PO ×2 (08:20→20:13)
[2019-03-10] MEDS: hydrALAzine 20 MG INJ IV (13:34)
[2019-03-10] MEDS: METOPROLOL 100 MG TAB PO (20:13)
[2019-03-10] MEDS: INSULIN GLARGINE [LANTus] (100 UNITS/ML) SYG SC (20:14)
[2019-03-11] MEDS: METOCLOPRAMIDE 10 MG INJ IV ×4 (00:58→17:09)
[2019-03-11] MEDS: ZOLPIDEM 5 MG TAB PO (01:00)
[2019-03-11] MEDS: ACCU-CHEK XX (01:30)
[2019-03-11] MEDS: PANTOPRAZOLE (EC) 40 MG TAB PO ×2 (05:45→17:09)
[2019-03-11] MEDS: INSULIN ASPART [NOVOLOG] 3 ML PEN SC ×4 (08:00→21:00)
[2019-03-11] MEDS: metFORMIN 500 MG TAB PO ×2 (08:16→17:09)
[2019-03-11] MEDS: AMOXICILLIN 500 MG CAP PO ×2 (08:16→21:14)
[2019-03-11] MEDS: CLARITHROMYCIN 500 MG TAB PO ×2 (08:16→21:14)
[2019-03-11] MEDS: ASPIRIN (EC) 81 MG TAB PO (08:17)
[2019-03-11] MEDS: POLYETHYLENE GLYCOL 17 GM PACKET PO (08:18)
[2019-03-11] MEDS: HEPARIN 5,000 UNIT/1 ML VIAL SC ×2 (08:19→21:23)
[2019-03-11] MEDS: LISINOPRIL 20 MG TAB PO (08:20)
[2019-03-11] MEDS: AMLODIPINE 5 MG TAB PO ×2 (08:20→21:14)
[2019-03-11] MEDS: METOPROLOL 100 MG TAB PO ×2 (08:26→21:14)
[2019-03-11] MEDS: ACETAMINOPHEN 325 MG TAB PO (11:25)
[2019-03-11] MEDS: clonAZEPAM 0.5 MG TAB PO (12:25)
[2019-03-11] MEDS: INSULIN GLARGINE [LANTus] (100 UNITS/ML) SYG SC (21:20)
[2019-03-12] MEDS: METOCLOPRAMIDE 10 MG INJ IV ×4 (00:16→17:25)
[2019-03-12] MEDS: ACCU-CHEK XX (02:00)
[2019-03-12] MEDS: PANTOPRAZOLE (EC) 40 MG TAB PO ×2 (06:29→17:25)
[2019-03-12] MEDS: INSULIN ASPART [NOVOLOG] 3 ML PEN SC ×4 (08:00→21:09)
[2019-03-12] MEDS: AMOXICILLIN 500 MG CAP PO ×2 (08:34→21:06)
[2019-03-12] MEDS: METOPROLOL 100 MG TAB PO ×2 (08:35→21:07)
[2019-03-12] MEDS: ASPIRIN (EC) 81 MG TAB PO (08:35)
[2019-03-12] MEDS: AMLODIPINE 5 MG TAB PO ×2 (08:35→21:06)
[2019-03-12] MEDS: CLARITHROMYCIN 500 MG TAB PO ×2 (08:35→21:07)
[2019-03-12] MEDS: LISINOPRIL 20 MG TAB PO (08:35)
[2019-03-12] MEDS: POLYETHYLENE GLYCOL 17 GM PACKET PO (08:36)
[2019-03-12] MEDS: metFORMIN 500 MG TAB PO ×2 (08:36→17:25)
[2019-03-12] MEDS: HEPARIN 5,000 UNIT/1 ML VIAL SC ×2 (08:37→21:10)
[2019-03-12] MEDS: ACETAMINOPHEN 325 MG TAB PO (21:06)
[2019-03-12] MEDS: INSULIN GLARGINE [LANTus] (100 UNITS/ML) SYG SC (21:08)
[2019-03-12] MEDS: ZOLPIDEM 5 MG TAB PO (23:34)
[2019-03-13] MEDS: METOCLOPRAMIDE 10 MG INJ IV ×4 (00:51→17:17)
[2019-03-13] MEDS: ACCU-CHEK XX (01:40)
[2019-03-13] MEDS: PANTOPRAZOLE (EC) 40 MG TAB PO ×2 (06:07→17:16)
[2019-03-13] MEDS: INSULIN ASPART [NOVOLOG] 3 ML PEN SC ×4 (07:36→21:00)
[2019-03-13] MEDS: metFORMIN 500 MG TAB PO ×2 (08:14→17:17)
[2019-03-13] MEDS: POLYETHYLENE GLYCOL 17 GM PACKET PO (08:14)
[2019-03-13] MEDS: CLARITHROMYCIN 500 MG TAB PO ×2 (08:14→21:06)
[2019-03-13] MEDS: AMOXICILLIN 500 MG CAP PO ×2 (08:15→21:06)
[2019-03-13] MEDS: METOPROLOL 100 MG TAB PO ×2 (08:15→21:07)
[2019-03-13] MEDS: LISINOPRIL 20 MG TAB PO (08:15)
[2019-03-13] MEDS: AMLODIPINE 5 MG TAB PO (08:16)
[2019-03-13] MEDS: ASPIRIN (EC) 81 MG TAB PO (08:16)
[2019-03-13] MEDS: HEPARIN 5,000 UNIT/1 ML VIAL SC (08:20)
[2019-03-13] MEDS: INSULIN GLARGINE [LANTus] (100 UNITS/ML) SYG SC (21:01)
[2019-03-13] MEDS: ACETAMINOPHEN 325 MG TAB PO (21:05)
[2019-03-13] MEDS: clonAZEPAM 0.5 MG TAB PO (22:01)
[2019-03-14] MEDS: ACCU-CHEK XX (02:00)
[2019-03-14] MEDS: PANTOPRAZOLE (EC) 40 MG TAB PO ×2 (05:50→17:04)
[2019-03-14] MEDS: INSULIN ASPART [NOVOLOG] 3 ML PEN SC ×4 (07:36→20:15)
[2019-03-14] MEDS: POLYETHYLENE GLYCOL 17 GM PACKET PO (08:34)
[2019-03-14] MEDS: METOPROLOL 100 MG TAB PO ×2 (08:37→20:14)
[2019-03-14] MEDS: ASPIRIN (EC) 81 MG TAB PO (08:37)
[2019-03-14] MEDS: NIFEdipine (XL) 60 MG TAB PO (08:37)
[2019-03-14] MEDS: metFORMIN 500 MG TAB PO ×2 (08:37→17:04)
[2019-03-14] MEDS: AMOXICILLIN 500 MG CAP PO ×2 (08:37→20:08)
[2019-03-14] MEDS: CLARITHROMYCIN 500 MG TAB PO ×2 (08:37→20:07)
[2019-03-14] MEDS: LISINOPRIL 20 MG TAB PO (08:37)
[2019-03-14] MEDS: INSULIN GLARGINE [LANTus] (100 UNITS/ML) SYG SC (20:16)
[2019-03-15] MEDS: ACCU-CHEK XX (01:22)
[2019-03-15] MEDS: PANTOPRAZOLE (EC) 40 MG TAB PO ×2 (05:14→17:25)
[2019-03-15] MEDS: INSULIN ASPART [NOVOLOG] 3 ML PEN SC ×4 (08:00→20:51)
[2019-03-15] MEDS: NIFEdipine (XL) 60 MG TAB PO (08:24)
[2019-03-15] MEDS: metFORMIN 500 MG TAB PO ×2 (08:24→17:26)
[2019-03-15] MEDS: METOPROLOL 100 MG TAB PO ×2 (08:25→20:50)
[2019-03-15] MEDS: LISINOPRIL 20 MG TAB PO (08:25)
[2019-03-15] MEDS: ASPIRIN (EC) 81 MG TAB PO (08:26)
[2019-03-15] MEDS: CLARITHROMYCIN 500 MG TAB PO ×2 (08:26→20:49)
[2019-03-15] MEDS: AMOXICILLIN 500 MG CAP PO ×2 (08:26→20:37)
[2019-03-15] MEDS: POLYETHYLENE GLYCOL 17 GM PACKET PO (08:29)
[2019-03-15] MEDS: INSULIN GLARGINE [LANTus] (100 UNITS/ML) SYG SC (20:49)
[2019-03-15] MEDS: ATORVASTATIN 40 MG TAB PO (20:49)
[2019-03-16] MEDS: ACCU-CHEK XX (02:00)
[2019-03-16] MEDS: PANTOPRAZOLE (EC) 40 MG TAB PO ×2 (05:27→17:20)
[2019-03-16] MEDS: INSULIN ASPART [NOVOLOG] 3 ML PEN SC ×4 (08:00→20:11)
[2019-03-16] MEDS: metFORMIN 500 MG TAB PO ×2 (08:12→17:20)
[2019-03-16] MEDS: ASPIRIN (EC) 81 MG TAB PO (08:12)
[2019-03-16] MEDS: CLARITHROMYCIN 500 MG TAB PO ×2 (08:12→20:11)
[2019-03-16] MEDS: AMOXICILLIN 500 MG CAP PO ×2 (08:12→20:10)
[2019-03-16] MEDS: NIFEdipine (XL) 60 MG TAB PO (08:13)
[2019-03-16] MEDS: METOPROLOL 100 MG TAB PO ×2 (08:13→20:11)
[2019-03-16] MEDS: LISINOPRIL 20 MG TAB PO (08:14)
[2019-03-16] MEDS: POLYETHYLENE GLYCOL 17 GM PACKET PO (08:14)
[2019-03-16] MEDS: ENOXAPARIN 40 MG/0.4 ML SYG SC (08:16)
[2019-03-16] MEDS: INSULIN GLARGINE [LANTus] (100 UNITS/ML) SYG SC (20:10)
[2019-03-16] MEDS: ATORVASTATIN 40 MG TAB PO (20:11)
[2019-03-17] MEDS: ACCU-CHEK XX (01:12)
[2019-03-17] MEDS: PANTOPRAZOLE (EC) 40 MG TAB PO ×2 (05:21→16:57)
[2019-03-17] MEDS: INSULIN ASPART [NOVOLOG] 3 ML PEN SC ×4 (08:00→20:13)
[2019-03-17] MEDS: POLYETHYLENE GLYCOL 17 GM PACKET PO (08:17)
[2019-03-17] MEDS: METOPROLOL 100 MG TAB PO ×2 (08:18→20:21)
[2019-03-17] MEDS: CLARITHROMYCIN 500 MG TAB PO ×2 (08:18→20:21)
[2019-03-17] MEDS: AMOXICILLIN 500 MG CAP PO ×2 (08:18→20:21)
[2019-03-17] MEDS: metFORMIN 500 MG TAB PO ×2 (08:18→16:58)
[2019-03-17] MEDS: ASPIRIN (EC) 81 MG TAB PO (08:18)
[2019-03-17] MEDS: NIFEdipine (XL) 60 MG TAB PO (08:18)
[2019-03-17] MEDS: LISINOPRIL 20 MG TAB PO (08:19)
[2019-03-17] MEDS: ENOXAPARIN 40 MG/0.4 ML SYG SC (08:20)
[2019-03-17] MEDS: ACETAMINOPHEN 325 MG TAB PO (19:46)
[2019-03-17] MEDS: INSULIN GLARGINE [LANTus] (100 UNITS/ML) SYG SC (19:49)
[2019-03-17] MEDS: ATORVASTATIN 40 MG TAB PO (20:21)
[2019-03-18] MEDS: ACCU-CHEK XX (01:03)
[2019-03-18] MEDS: PANTOPRAZOLE (EC) 40 MG TAB PO ×2 (05:50→17:00)
[2019-03-18] MEDS: INSULIN ASPART [NOVOLOG] 3 ML PEN SC ×4 (08:00→20:11)
[2019-03-18] MEDS: CLARITHROMYCIN 500 MG TAB PO (08:12)
[2019-03-18] MEDS: AMOXICILLIN 500 MG CAP PO (08:12)
[2019-03-18] MEDS: METOPROLOL 100 MG TAB PO ×2 (08:13→20:11)
[2019-03-18] MEDS: LISINOPRIL 20 MG TAB PO (08:13)
[2019-03-18] MEDS: NIFEdipine (XL) 60 MG TAB PO (08:14)
[2019-03-18] MEDS: metFORMIN 500 MG TAB PO ×2 (08:14→16:57)
[2019-03-18] MEDS: ASPIRIN (EC) 81 MG TAB PO (08:14)
[2019-03-18] MEDS: POLYETHYLENE GLYCOL 17 GM PACKET PO (08:15)
[2019-03-18] MEDS: ENOXAPARIN 40 MG/0.4 ML SYG SC (08:15)
[2019-03-18] MEDS: ACETAMINOPHEN 325 MG TAB PO (11:10)
[2019-03-18] MEDS: ATORVASTATIN 40 MG TAB PO (20:08)
[2019-03-18] MEDS: INSULIN GLARGINE [LANTus] (100 UNITS/ML) SYG SC (20:09)
[2019-03-19] MEDS: ACCU-CHEK XX (01:41)
[2019-03-19] MEDS: PANTOPRAZOLE (EC) 40 MG TAB PO ×2 (05:10→17:30)
[2019-03-19] MEDS: INSULIN ASPART [NOVOLOG] 3 ML PEN SC ×4 (08:00→20:35)
[2019-03-19] MEDS: POLYETHYLENE GLYCOL 17 GM PACKET PO (08:31)
[2019-03-19] MEDS: ASPIRIN (EC) 81 MG TAB PO (08:31)
[2019-03-19] MEDS: METOPROLOL 100 MG TAB PO ×2 (08:31→20:34)
[2019-03-19] MEDS: metFORMIN 500 MG TAB PO ×2 (08:31→17:30)
[2019-03-19] MEDS: NIFEdipine (XL) 60 MG TAB PO (08:32)
[2019-03-19] MEDS: LISINOPRIL 20 MG TAB PO (08:32)
[2019-03-19] MEDS: ENOXAPARIN 40 MG/0.4 ML SYG SC (08:33)
[2019-03-19] MEDS: ACETAMINOPHEN 325 MG TAB PO (15:10)
[2019-03-19] MEDS: ATORVASTATIN 40 MG TAB PO (20:34)
[2019-03-19] MEDS: INSULIN GLARGINE [LANTus] (100 UNITS/ML) SYG SC (20:37)
== END 2019-03-20 00:45 | DRG 65 ==
LOC: E/R 08:15 → 5EC 03-01 15:26 → 6WM 10:30
PROC: 0DB58ZX Excision of Esophagus, Via Natural or Artificial Opening Endoscopic, Diagnostic (ICD-10-PCS; principal; 2019-03-03 15:23)
PROC: 0DB68ZX Excision of Stomach, Via Natural or Artificial Opening Endoscopic, Diagnostic (ICD-10-PCS; 2019-03-03 15:23)
DX: I63.9 Cerebral infarction, unspecified (principal); I16.1 Hypertensive emergency; F10.239 Alcohol dependence with withdrawal, unspecified; E11.65 Type 2 diabetes mellitus with hyperglycemia; I10 Essential (primary) hypertension; K29.60 Other gastritis without bleeding; B96.81 Helicobacter pylori [H. pylori] as the cause of diseases classified elsewhere; E78.5 Hyperlipidemia, unspecified; F41.9 Anxiety disorder, unspecified; R62.7 Adult failure to thrive; E88.81 Metabolic syndrome and other insulin resistance; Z68.25 Body mass index [BMI] 25.0-25.9, adult; Z72.0 Tobacco use
CPT/HCPCS: 36415; 70450; 70544; 70549; 70551; 71045; 78264; 80048; 80053; 80061; 80307; 82140; 82962; 83036; 83690; 83735; 84100; 84436; 84443; 84479; 84484; 85025; 85610; 85651; 85730; 86592; 86703; 88305; 88312; 92526; 92610; 93005; 93306; 93880; 96374; 97110; 97116; 97163; 97167; 97530; 97535; 99285-25